=== PATIENT | male | born 2005 ===

== ENCOUNTER 2023-07-12 18:30 | Day surgery (SDC) | payer SELFPAY ==
[2023-07-12] MEDS ORDERED: Bupivacaine 0.25% HCL 30 ML VIAL ONE (18:42)
[2023-07-12] MEDS ORDERED: EPINEPHrine 1 MG/ML VIAL ONE (18:42)
[2023-07-12] MEDS ORDERED: Ondansetron PF 4 MG/2 ML Vial ONE (18:50)
[2023-07-12] MEDS ORDERED: SUCCINYLCHOLINE/SOD CL,ISO/PF 200 MG/10 ML SYRINGE FS ONE (18:50)
[2023-07-12] MEDS ORDERED: Lidocaine 1% PF 5 ML VIAL ONE (18:50)
[2023-07-12] MEDS ORDERED: Midazolam HCl 2 mg/2 ml Vial ONE (18:50)
[2023-07-12] MEDS ORDERED: fentaNYL PF 100 MCG/2 ML SYRINGE ONE (18:50)
[2023-07-12] MEDS ORDERED: PROPOFOL 20 ML ONE (18:50)
[2023-07-12] MEDS ORDERED: Rocuronium Bromide 10 MG/ML (10ML VIAL) ONE (18:50)
[2023-07-12] MEDS ORDERED: Dexamethasone 20 MG/5 ML VIAL ONE (19:57)
[2023-07-12] MEDS ORDERED: Ketorolac Tromethamine 30 MG (1 mL) VIAL ONE (19:57)
[2023-07-12] MEDS ORDERED: SUGAMMADEX SODIUM 200 MG/2 ML VIAL ONE (19:58)
[2023-07-12] MEDS ORDERED: Acetaminophen/Codeine 30-300mg Tablet PO PRN (20:30)
[2023-07-12] MEDS ORDERED: HYDROcodone/Acetaminophen 5/325 mg Tablet ONE (21:04)
== END 2023-07-12 21:40 | disposition home or self-care (01) ==
LOC: SDC/OP 18:30
PROVIDERS: ATTEND Student in an Organized Health Care Education/Training Program
PROC: 0DTJ4ZZ Resection of Appendix, Percutaneous Endoscopic Approach (ICD-10-PCS; principal; 2023-07-12)
DX: K35.80 Unspecified acute appendicitis (principal)
CPT/HCPCS: 88304; A4649; J0171; J0665; J1100; J1885; J2250; J2405; J2704